=== PATIENT | female | born 1980 | race Caucasian/White ===

== ENCOUNTER 2016-12-05 23:41 | Emergency (ER) | payer OTHER ==
[~2016-12-05] VITALS: Ht 180.3 cm; Wt 127.2 kg
[~2016-12-05 23:41] MED LIST: DIFLUCAN150 MG PO; FIORICET 50-301 EACH PO; HYDROCODON-ACE1 EAC7 PO; IBUPROFEN800 MG PO; KEFLEX500 MG PO; MOTRIN600 MG PO; SYNTHROID25 MCG PO; SYNTHROID50 MCG PO; ULTRAM50 MG PO
[2016-12-06 00:22] LABS: HEMATOCRIT 36.6 % (36.0-46.0); MCH 27.5 PG (29.0-34.0); MCV 85.9 FL (83-99); MEAN PLAT.VOLUME 9.5 uM^3 (9.5-12.4); PLATELET COUNT 293 K/uL (156-360); RBC DIS.WIDTH-CV 12.6 % (11.8-14.6); RBC DIS.WIDTH-SD 39.1 % (39-53); RED BLOOD COUNT 4.26 M/uL (3.80-5.20); WHITE BLOOD COUNT 10.2 K/uL (4.1-10.2)
[2016-12-06 00:22] LABS: ADD MIUA? YES; BILIRUBIN NEGATIVE; BLOOD LARGE; COLOR AMBER ((YELLOW)); GLUCOSE (STRIP) NEGATIVE; KETONES NEGATIVE; LEUKOCYTES TRACE; NITRITE NEGATIVE; PROTEIN (STRIP) 100; UROBILINOGEN 0.2 MG/DL (0.2-1.0)
[2016-12-06 00:27] LABS: CHLORIDE 106 mEq/L (99-109); POTASSIUM 4.1 mEq/L (3.7-5.4); SODIUM 139 mEq/L (136-147)
[2016-12-06 00:29] LABS: GLUCOSE 131 mg/dL (70-99)
[2016-12-06 00:31] LABS: ANION GAP 11 MEQ/L (2-14); TOTAL BILIRUBIN 0.3 mg/dL (0.0-1.0)
[2016-12-06 00:33] LABS: ALKALINE PHOSPHATASE 47 IU/L (3-129); GFR ESTIMATE (CALCULATED) > 59 mL/min/
[2016-12-06 00:34] LABS: UREA NITROGEN (BUN) 16 mg/dL (9-23)
[2016-12-06 00:41] LABS: RED BLOOD CELLS TNTC /HPF (0-5); WHITE BLOOD CELLS 0-5 /HPF (0-5)
[2016-12-06 00:42] LABS: BACTERIA 2+ /HPF; EPITHELIAL CELLS 1+ /HPF; MUCUS NONE SEEN /LPF; UCUL ADDED? NO
[2016-12-06 00:45] LABS: QUANTITATIVE HCG < 4.0 MIU/ML
[2016-12-06] MEDS ORDERED: BACTRIM,SEPT1 TABLET PO (01:00)
[2016-12-06] MEDS ORDERED: PERCOCET 5/31 TABLET PO (01:00)
[2016-12-06] MEDS ORDERED: TORADOL10 MG PO (01:01)
[2016-12-06 01:22] VITALS: BP 143/87
== END 2016-12-06 01:29 | disposition home or self-care (01) ==
LOC: EME 23:41
DX: N94.6 Dysmenorrhea, unspecified (principal); N39.0 Urinary tract infection, site not specified
CPT/HCPCS: 80053; 81003; 84702; 85027; 99281; 99284; J1885